=== PATIENT | male | born 2005 | race Two or more races ===

== ENCOUNTER 2025-06-09 21:45 | Emergency (ER) | payer OTHER ==
[~2025-06-09] VITALS: Ht 162.6 cm; Wt 68.0 kg
[2025-06-09] MEDS ORDERED: NORFLEX100MG PO (23:26)
[2025-06-09] MEDS ORDERED: DICLOFENAC SODI75 MG PO (23:26)
[2025-06-10] MEDS ORDERED: DEXAMETHASONE SODIUM PHOSPHATE 4 MG/ML VIAL ONE (00:25)
[2025-06-10] MEDS ORDERED: KETOROLAC TROMETHAMINE 60 MG VIAL IM ONE ×2 (00:25→00:30)
[2025-06-10] MEDS ORDERED: DEXAMETHASONE SODIUM PHOSPHATE 4 MG/ML VIAL IM ONE (00:30)
== END 2025-06-10 00:39 | disposition home or self-care (01) ==
LOC: ER 21:45
DX: M54.50 Low back pain, unspecified (principal)